=== PATIENT | male | born 1975 | race Caucasian/White ===

== ENCOUNTER 2017-12-18 13:04 | Emergency (ER) | payer OTHER ==
[~2017-12-18] VITALS: Ht 177.8 cm; Wt 81.6 kg
[2017-12-18 13:17] VITALS: BP 133/78
--- NOTE | 2017-12-18 13:20 | NUR ---
LEFT LEG PAIN X 5 DAYS, REQUEST FOR DETOX. NAD NOTED, VSS, RESP EVEN AND UNLABORED, PT WAS PUT ON MONITOR AND WAITING FOR MD PANG.
== END 2017-12-18 14:56 | disposition home or self-care (01) ==
LOC: ER 13:10
DX: S80.12XA Contusion of left lower leg, initial encounter (principal); F10.10 Alcohol abuse, uncomplicated; X58.XXXA Exposure to other specified factors, initial encounter; Y93.89 Activity, other specified; Y92.89 Other specified places as the place of occurrence of the external cause; Y99.8 Other external cause status
CPT/HCPCS: A4606; Z7502; Z7610

== ENCOUNTER 2018-01-24 22:05 | Emergency (ER) | payer SELFPAY ==
[~2018-01-24] VITALS: Ht 177.8 cm; Wt 79.4 kg
--- NOTE | 2018-01-24 22:14 | NUR ---
42 YO MALE BB RA FROM HOME. PATIENT IS NON VERBAL AT THIS TIME, HAS PURPOSEFUL MOVEMENTS. PATIENT IS MOVING ALL EXTREMITIES FREELY. 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 SKIN WARM AND DRY, RESP EVEN AND UNLABORED. AWAITING ORDERS FROM PROVIDER
[2018-01-24] MEDS ORDERED: Thiamine 100 MG/ML VIAL ONE (23:17)
[2018-01-24] MEDS ORDERED: Thiamine 100 MG in IV D5W 50 ML IV SCH (23:30)
[2018-01-24] MEDS ORDERED: IV NS 0.9% 1,000 ML BAG IV ONE (23:30)
[2018-01-24 23:50] LABS: BASOPHILS % (AUTO) 0.5 % (0.0-2.0); HEMATOCRIT 47 % (39-51); LYMPHOCYTES # (AUTO) 3.2 /CMM (0.8-4.8); LYMPHOCYTES % (AUTO) 45.6 % (20.0-44.0); MEAN CORPUSCULAR HEMOGLOBIN 34 PG (26.0-33.0); MEAN CORPUSCULAR HGB CONC 34 g/dl (31.0-36.0); MEAN CORPUSCULAR VOLUME 101 fL (80-96); MONOCYTES # (AUTO) 0.4 /CMM (0.1-1.30); NEUTROPHILS # (AUTO) 3.4 /CMM (1.8-8.9); NEUTROPHILS % (AUTO) 47.9 % (43.0-81.0); PLATELET COUNT (AUTO) 436 /CMM (150-450); RDW COEFFICIENT OF VARIATION 13.2 (11.5-15.0); RED BLOOD CELL COUNT(AUTO) 4.65 MIL/uL (4.5-6.0); WHITE BLOOD COUNT (AUTO) 7.1 K/uL (4.3-11.0)
[2018-01-25 00:03] LABS: CREATININE 0.8 mg/dL (0.6-1.3); POTASSIUM 3.6 mmol/L (3.5-5.1)
[2018-01-25 00:10] LABS: ALBUMIN 3.5 g/dL (3.4-5.0); BILIRUBIN,TOTAL 0.2 mg/dL (0.2-1.0); TOTAL PROTEIN, SERUM 7.5 g/dL (6.4-8.2)
--- NOTE | 2018-01-25 04:33 | NUR ---
pt uncle, [place] kee [phone] will burr picker patient if brother is not available.
--- NOTE | 2018-01-25 05:13 | NUR ---
PT AMBULATED TO BATHROOM WITH A STEADY GAIT. PT PULLED OUT HIS IV IN THE BATHROOM. PT WENT BACK TO ROOM #5. Patient discharged to home in stable condition VIA UBER. Written and verbal after care instructions given. Patient verbalizes understanding of instruction. PT AMBULATED TO THE LOBBY WITH A STEADY GAIT. VSS.
[2018-01-25 05:19] VITALS: BP 132/80
== END 2018-01-25 05:22 | disposition home or self-care (01) ==
LOC: ER 22:06
DX: F10.129 Alcohol abuse with intoxication, unspecified (principal)
CPT/HCPCS: 36415; 80048; 80076; 85025; 96365; 99284; A4606; G0480; J3411 ×2; J7030; J7060; Z7610